=== PATIENT | female | born 1960 | race Caucasian/White ===

== ENCOUNTER 2021-02-04 08:29 | Emergency (ER) | payer OTHER, SELFPAY ==
[2021-02-04 08:46] VITALS: BP 145/72; PULSE 90; RESP 16; TEMP 36.7; O2SAT 100
[2021-02-04 08:55] VITALS: BP 145/72; PULSE 90; RESP 16; TEMP 36.7; O2SAT 100
--- NOTE | 2021-02-04 08:58 | ED.GENADULT ---
HPI - General Adult General Chief complaint: Urogenital-Female Stated complaint: UTI Source: patient Mode of arrival: ambulatory Limitations: no limitations History of Present Illness HPI narrative: Patient presents for evaluation of urinary symptoms since of last week. She reports urinary hesitancy, frequency, without dysuria or hematuria. She has noted some cramping in the pelvic region and a sharp pain in her vaginal area. She denies any vaginal bleeding or discharge. No fevers, chills, nausea, vomiting, change in bowel pattern. She thought that her symptoms were related to a urinary tract infection. She took Tylenol which helped alleviate the pelvic cramping. No additional complaints or concerns. Related Data Home Medications Medication Instructions Recorded Confirmed No Home Medications 02/04/21 02/04/21 Allergies Allergy/AdvReac Type Severity Reaction Status Date / Time No Known Allergies Allergy Verified 02/04/21 08:36 Review of Systems Review of Systems: Narrative: CONSTITUTIONAL: Denies fever, chills, or sweats. EYES: Denies visual changes, redness, or discharge. ENT: Denies rhinorrhea, congestion, sore throat, or otalgia. CARDIOVASCULAR: Denies chest pain, palpitations, or edema. RESPIRATORY: Denies cough or dyspnea. GASTROINTESTINAL: Reports pelvic pain. Denies nausea, vomiting, or diarrhea. GENITOURINARY: Reports urinary hesitancy and frequency denies dysuria or hematuria. Reports vaginal pain SKIN: Denies rash or itching. MUSCULOSKELETAL: Denies back pain, joint pain, or myalgia. NEUROLOGIC: Denies headache, numbness, dizziness, or weakness. PSYCHIATRIC: Denies anxiety or depression. [facility] Past Medical History Medical History (Updated 02/04/21 @ 09:06 by ROBERT Hagen, MADELAINE) No pertinent past medical history Surgical History Surgical History No pertinent past surgical history Family History Family History Mother Vascular dementia Father Congestive heart failure Social History Social History Smoking status: Light tobacco smoker Alcohol intake: never Substance use: never Gender identity (if verbalized by the patient): Female Spiritual care concerns: No Exam Narrative: Exam Narrative: GENERAL: Well-appearing, well-nourished, and in no acute distress. HEAD: Normocephalic, atraumatic. EYES: PERRLA and EOMI. ENT: Nares clear, no rhinorrhea or epistaxis. Mucous membranes moist. Oropharynx without tonsillar hypertrophy exudate or other lesions. Bilateral TMs pearly ward nonbulging NECK: Supple. No adenopathy or masses. No carotid bruits or JVD CHEST: Clear to auscultation. No respiratory distress. No wheezes rales or rhonchi HEART: Regular rate and rhythm. No murmur heard. Normal peripheral pulses. ABDOMEN: Soft, nontender, nondistended, normal active bowel sounds. EXTREMITIES: Normal range of motion. No edema. SKIN: Warm, dry, no rash. NEURO: No focal deficits. Alert and oriented x3. PSYCH: Normal mood and affect. Course Course Emergency Course: This is a 60-year-old female that presents with urinary complaints for last 3 days. She has no abdominal tenderness or CVA tenderness to suggest renal lithiasis. Urine dipstick showed trace blood. There was no evidence of infection on her urine dipstick. I offered patient several options including pelvic exam and sending to the emergency department for serum labs. She declined pelvic exam and referral to the ER. I think this is reasonable as she has no abdominal tenderness, CVA tenderness and is in no apparent distress. I did advise that she follow-up outpatient this coming week for repeat urinalysis to ensure resolution of her microscopic hematuria. In the event that she has persistent microscopic hematuria, she likely needs furth
== END 2021-02-04 09:07 | disposition home or self-care (01) ==
PROVIDERS: Emergency Provider Nurse Practitioner; PCP Physician Assistant
DX: R31.29 Other microscopic hematuria (principal); R10.2 Pelvic and perineal pain; F17.210 Nicotine dependence, cigarettes, uncomplicated
CPT/HCPCS: 81003; 99212; G0463

== ENCOUNTER 2021-07-30 15:05 | Emergency (ER) | payer OTHER, SELFPAY ==
[2021-07-30 15:16] VITALS: BP 149/88; PULSE 77; RESP 18; TEMP 36.4; O2SAT 100
--- NOTE | 2021-07-30 15:53 | ED.SKABFB ---
HPI - Skin/Abscess/Foreign Bdy General Chief complaint: Skin/Abscess/Foreign Body Stated complaint: Rash Time Seen by Provider: 07/30/21 15:53 Source: patient, RN notes reviewed and old records reviewed Mode of arrival: ambulatory Limitations: no limitations History of Present Illness HPI narrative: 60-year-old female presents to the [facility] with a rash for 1 week to her abdomen. States that she has a history of a staph infection and is concerned because she has been using surgical scrub with no improvement. Patient denies it being itchy or burning. Tried a new laundry detergent but states it is only on her abdomen. Denies pain, fever, nausea vomiting or diarrhea. No chest pain or shortness of breath. No swelling. Related Data Allergies Allergy/AdvReac Type Severity Reaction Status Date / Time No Known Allergies Allergy Verified 07/30/21 15:12 Review of Systems Review of Systems: All systems reviewed & are unremarkable except as noted in HPI and below Constitutional: Constitutional: Reports no additional constitutional complaints, Denies chills and Denies fever(s) Eyes: Eyes: Reports no additional eye complaints ENT: Reports system reviewed and no additional complaints, except as documented Cardiovascular: Cardiovascular: Reports no additional cardiovascular complaints, Denies chest pain and Denies radiating jaw, neck or arm pain Respiratory: Respiratory: Reports no additional respiratory complaints, Denies cough and Denies dyspnea Gastrointestinal: Gastrointestinal: Reports no additional gastrointestinal complaints, Denies abdominal pain, Denies diarrhea, Denies nausea and Denies vomiting Musculoskeletal: Musculoskeletal: Reports no additional musculoskeletal complaints Integumentary/Breasts: Skin/Breast: Reports as per HPI and Reports rash Neurologic: Reports system reviewed and no additional complaints, except as documented Psychiatric: Psychiatric: Reports no additional psychiatric complaints Allergic/Immunologic: Allergic/Immunologic: Reports no additional allergic/immunologic complaints [facility] Past Medical History Medical History (Updated 08/01/21 @ 07:50 by Aliza Bass) No pertinent past medical history Surgical History Surgical History No pertinent past surgical history Family History Family History Mother Vascular dementia Father Congestive heart failure Social History Social History Smoking status: Light tobacco smoker Alcohol intake: never Substance use: never Gender identity (if verbalized by the patient): Female Spiritual care concerns: No Exam Const: General: healthy appearing, no acute distress and alert Nutritional Appearance: well nourished Orientation/consciousness: patient oriented x3 Limitations: no limitations HENMT: Head: normal to inspection Eyes: Conjunctivae: conjunctivae normal Pupils: Equal, round and reactive pupils present Neck: Neck: normal visual inspection, no lymphadenopathy and no meningeal signs Chest: Chest palpation & inspection: normal inspection of the chest Resp: Effort & Inspection: normal respiratory effort Auscultation: clear to auscultation bilaterally Cardio: Rate: regular rate Rhythm: regular rhythm GI: GI Palp: Yes Soft to palpation, No Tenderness to palpation present (GI) and No Guarding due to palpation present (GI) : General: Yes no CVA tenderness Back/Spine/Pelvis: Back: no CVA tenderness Skin: General skin exam: normal color Rashes: rashes noted (Abdomen red, blanchable no swelling or increased redness) Neuro: General: patient oriented x3, moves all extremities, no meningeal signs and no focal motor deficits Speech: normal speech Psych: Appearance: grossly normal and well kempt Mental Status: mental status grossly normal Aff
== END 2021-07-30 16:05 | disposition home or self-care (01) ==
PROVIDERS: Emergency Provider Nurse Practitioner; PCP Family Medicine
DX: L25.9 Unspecified contact dermatitis, unspecified cause (principal); F17.200 Nicotine dependence, unspecified, uncomplicated
CPT/HCPCS: 99213; G0463